=== PATIENT | female | born 1995 | race Caucasian/White ===

== ENCOUNTER 2021-07-02 04:44 | Inpatient (IN) | payer OTHER ==
[~2021-07-02 04:44] MED LIST: HYDROCODON-ACE1 EAC4 PO; NEXPLANON68 MG SUBD; TOFRANIL10 MG PO; VENTOLIN HFA IN18 GM INH
[2021-07-02 06:13] LABS: HCT 34.3 % (37.0-47.0); HGB 11.6 g/dl (12.5-16.0); MCH 32.7 pg (25.0-31.0); MCHC 33.8 g/dL (32.0-36.0); MCV 96.6 fL (78.0-100.0); MPV 10.3 fL (6.0-9.5); RBC 3.55 M/uL (4.20-5.40); RDW 13.1 % (11.5-14.0)
[2021-07-02 06:14] LABS: BILIRUBIN NEGATIVE (NEGATIVE); BLOOD NEGATIVE Ery/uL (NEGATIVE); CLARITY CLEAR (CLEAR); COLOR YELLOW (YELLOW); GLUCOSE (U) 1+ mg/dL (NORMAL); LEUKOCYTES NEGATIVE Leu/uL (NEGATIVE); NITRITE NEGATIVE (NEGATIVE); PROTEIN NEGATIVE (NEGATIVE)
[2021-07-02 06:22] LABS: AMPHETAMINES NEGATIVE (NEGATIVE); BARBITURATES NEGATIVE (NEGATIVE); ECSTASY (MDMA) NEGATIVE (NEGATIVE); MARIJUANA (THC) NEGATIVE (NEGATIVE); METHADONE NEGATIVE (NEGATIVE); OPIATES NEGATIVE (NEGATIVE); OXYCODONE NEGATIVE (NEGATIVE)
[2021-07-03 06:33] LABS: HCT 36.4 % (37.0-47.0); HGB 11.9 g/dL (12.5-16.0)
== END 2021-07-03 17:00 | disposition home or self-care (01) | DRG 806 ==
LOC: FOD 04:44 → FOB 04:45 → FOD 04:45 → FOB 07-03 17:00
PROVIDERS: ADMIT Obstetrics & Gynecology
PROC: 10E0XZZ Delivery of Products of Conception, External Approach (ICD-10-PCS; principal; 2021-07-02)
PROC: 0HQ9XZZ Repair Perineum Skin, External Approach (ICD-10-PCS; 2021-07-02)
DX: O99.02 Anemia complicating childbirth (principal); O99.354 Diseases of the nervous system complicating childbirth; Z37.0 Single live birth; Z3A.39 39 weeks gestation of pregnancy; O70.0 First degree perineal laceration during delivery; O32.6XX0 Maternal care for compound presentation, not applicable or unspecified; Z20.822 Contact with and (suspected) exposure to COVID-19; O99.52 Diseases of the respiratory system complicating childbirth; J45.909 Unspecified asthma, uncomplicated; G43.909 Migraine, unspecified, not intractable, without status migrainosus
CPT/HCPCS: 36415; 80305; 81003; 85014; 85018; J7120; U0002